=== PATIENT | male | born 1950 | race Caucasian/White ===

== ENCOUNTER → 2017-02-15 | Outpatient (CLI) | payer BC ==
[~2017-02-15] MED LIST: ASCO500T16 PO; ASPCH81X PO; CHOL100010 PO; LISI-461 PO; LPT40 PO; MULT-897 PO; OMEG-112 PO
--- NOTE | 2017-02-16 06:14 | PAP/PSG TECHNICIAN REPORT ---
[facility] Automation Clerk Polysomnogram Report Study name: None Report date: 02/16/2017 Study date: 02/15/2017 Referring Physician: Shaunna Kuhn M.D. Name: SIMON ANDREW Interpreting Physician: Radha Kuhn M.D. Date of : 1950 Automation Clerk: Tracee Mcfarland RPSMARY. Sex: Male Age: 66 StudyType: PSG W PAP Weight: 199 lbs Height: 66 years, Height 5' 10" BMI: 28.55 Medications: Toprol XL 50 mg, Atorvastatin 40 mg, One a Day multi vitamins, Vitamin C, Vitamin D, Low Dose Aspirin Patient History 66 yr. old male here for a titration sleep study in room 7. Patients has been on APAP and he is averaging 11 CA/hr. Patient uses nasal pillows and tapes his mouth shut. He was given a chin strap but still prefers the nap. Test will be started with just nasal pillows and chin strap will be added if patients mouth opens. Parameters Monitored NPSG: E1-M2, E2-M1, Fp1-M2, Fp2-M1, F3-M2, F4-M2, F4-M1, C3-M2, C4-M2, C4-M1, O1-M2, O2-M2, O2-M1, T3-M2, T4-M1, P3-M2, P4-M1, CHIN1, CHIN2, HR, EKG, Legs, PFLOW, SNOR, FLOW, CFLOW, Tidal Volume, THOR, ABDO, SpO2, PLTH, CPRESS, ETCO2 Wave, ETCO2, pH Sleep Architecture Sleep Stages Time at Lights Off 10:15:07 PM STAGES Time (min.) TST (%) Time at Lights On 5:58:37 AM Wake 122.0 -- Total Recording Time (TRT) 464.50 min. N1 39.5 12 Total Sleep Period (TSP) 451.5 min. N2 219.5 64 Total Sleep Time (TST) 341.5min. N3 26.0 8 Awake Time 123.0 min. REM 56.5 17 Wake after Sleep Onset 110.0 min. Sleep Efficiency (SE) 74 % Sleep Onset Latency ([place]) 12.0 min. Number of Stage 1 Shifts None Awakenings 14 Stage Changes 114 Number of REM periods 9 REM 56.5 17 REM Latency 102.0 min. NREM 285.0 83 Body Position Analysis Supine Right Left Side Prone Vertical Total Sleep Time (min.) 31.1 219.0 97.0 316.02 0.0 0.0 Total Sleep Time (%) 7% 64% 28% 93 0% N/A% Total Sleep Time REM (min.) 22.7 12.8 21.0 None 0.0 0.0 Total Sleep Time NREM (min.) 2.7 206.3 76.0 None 0.0 0.0 Intermittent Wake (min.) 5.6 37.8 78.6 None 0.0 0.0 Total Sleep Period (%) 7% None None None None None Arousals Myoclonus (PLM) * Events Count Index Events Count Index Spontaneous 22 4 Events Awake (PLMW) 65 32.0 Respiratory 10 2.1 Events Asleep w/ Arousal (PLMA) 58 10.2 PLM 58 10 Events Asleep w/o Arousal (PLMS) 81 14.2 Snoring 6 1 Total Asleep 139 24.4 Total 96 17 Total 204 26 Respiratory Analysis * CA OA MA CH H RERA Total Count 39 1 0 0 93 2 133 Index 6.9 0.2 0.0 0 16.3 0 23.7 Mean Duration 17.0 19.4 0.0 0.00 34.0 22.5 28.8 Longest Duration 29.4 19.4 0.0 0.00 0.0 27.1 58.7 Respiratory Event Summary Total Supine ~Supine Right Left Prone REM NREM Apneas Count 40 0 40 25 15 N/A 0 40 Index 7.0 0 8 6.8 9.3 N/A 0 8 Hypopneas (4% Desat) Count 93 13 80 62 18 N/A 21 72 Index 16.3 30.6 15 17.0 11.1 N/A 22.3 15.2 Apneas & All Hypopneas Count 133 13 120 87 33 N/A 21 112 Index 23.4 31 23 24 20 N/A 22.3 23.6 Respiratory Events (Farm Appraiser+All Hyp+RERA) Count 133 13 122 89 33 N/A 21 112 Index 23.7 31 23 24.4 20.4 N/A 22.3 24.0 Respiratory Related Arousal Count 10 13 12 8 4 N/A 1 11 Index 2.1 0 2 2 2 N/A 1 2 Snoring Analysis Supine Right Left Prone REM NREM Total Snore duration 2.6 min Snores count 0 35 11 N/A 4 42 46 Snore mean duration 3.4 Sec Snores index 0 10 7 N/A 4.2 8.8 8.1 TST with snoring (%) 0.8% Desaturation Event Summary: Minimum %SpO2 Event Count Mean/Min/Max Duration(sec.) Desaturation Index % Time In Bed > 90 127 32.1 / 10.5 / 57.0 19.9 84.1 86 - 90 32 28.3 / 16.0 / 43.3 28.7 14.7 81 - 85 0 N/A 0.0 1.2 76 - 80 0 N/A 0.0 0.0 71 - 75 0 N/A 0.0 0.0 66 - 70 0 N/A 0.0 0.0 61 - 65 0 N/A 0.0 0.0 56 - 60 0 N/A 0.0 0.0 51 - 55 0 N/A 0.0 0.0 < 50 0 N/A 0.0 0.0 Total REM NREM Awake <50% 0.0 min. 0.0 min. 0.0 min. 0.0 min. 51 - 60% 0.0 min. 0.0 min. 0.0 min. 0.0 min. 61 - 70% 0.0 min. 0.0 min. 0.0 min. 0.0 min. 71 - 80% 0.0 min. 0.0 min. 0.0 min. 0.0 min. 81 - 90% 72.5 min. 26.5 min. 43.4 min. 2.6 min. 91 - 100% 382.7 min. 30.0 min. 241.6 min. 111.1 min. Average 93 91 93 94 Minimum SpO2 81 84 83 81 Desaturation Event Index 17.9 26.5 22.3 3.4 # Desat. Events below 89% 50 20 29 1 Time(%) with Saturation below 89% 6.3 2.2 3.7 0.4 Time(min.) with Saturation below 89% 28.6 10.1 16.8 1.6 Time (mins) REM (mins) NREM (mins) % of TST SpO2 Below 90% 86 25 N61 12.6 SpO2 Below 88% 25 0 0 5 Heart Rate Analysis Min (bpm) Max (bpm) Average (bpm) Awake 38 214 60 NREM 48 76 53 REM 49 67 56 Overall 48 76 53 Supplemental O2 Values Minimum O2 level: None Value Start Time End Time Automation Clerk Comments Mr. Andrew slept in the right, left, and positions. No cardiac arrhythmia. PLMs noted. No bruxism noted. CPAP was initiated at +4 CMH2O room air and up-titrated to a level of 7 CMH2O Cflex 2, at this pressure Mr. Andrew was having sleep onset centrals and post arousals centrals, he was switched to Bi-PAP. PAP initiated at an IPAP of +8 CMH2O and an EPAP of +4 CMH2O up-titrated to an optimal level of: IPAP +15 CMH2O, EPAP +5 CMH20 BiFlex with a rate of 10 BPM, once the rate was added constant hypopneas supine were present. Mr. Andrew kept his mouth closed and a chin strap was not needed for his P10 nasal pillows. A full-face mask was fitted (medium [place] and [employer] simplus) but was not during titration. Mr. Andrew awoke to use the restroom two times during the night. stated, that was a normal night, just took a little longer to fall asleep. The final report will be interpreted and signed by a sleep physician. The completed physician report will then be placed in the patient medical record. Therapy Event: Therapy (cm H20) 4 5 6 7 8/4 9/5 Total Time at Pressure (min.) 27.7 55.2 83.9 56.5 29.8 109.8 TST at Pressure (min.) 15.7 22.2 58.9 53.5 29.8 61.3 # Periods 1 1 1 1 1 1 Sleep Onset (min.) 12.0 0.0 0.0 0.0 0.0 0.0 REM Onset (min.) N/A N/A 31.1 23.3 N/A N/A Sleep Efficiency % 56 40 70 94 100 55 Wakefulness (%) 43.3 59.8 29.8 5.3 0.0 44.2 Wakefulness (min.) 12.0 33.0 25.0 3.0 0.0 48.5 NREM 1 (%) 25.3 8.2 7.2 8.8 3.4 9.6 NREM 1 (min.) 7.0 4.5 6.0 5.0 1.0 10.5 NREM 2 (%) 31.4 32.1 58.9 34.5 96.6 46.3 NREM 2 (min.) 8.7 17.7 49.4 19.5 28.8 50.8 NREM 3 (%) 0.0 0.0 3.6 14.2 0.0 0.0 NREM 3 (min.) 0.0 0.0 3.0 8.0 0.0 0.0 REM (%) 0.0 0.0 0.6 37.2 0.0 0.0 REM (min.) 0.0 0.0 0.5 21.0 0.0 0.0 # Arousals 1 6 26 19 7 26 Arousal Index 3.8 16.2 26.5 21.3 14.1 25.4 # Snore 2 4 4 7 3 16 Snore Index 7.6 10.8 4.1 7.8 6.0 15.7 AHI 26.8 24.3 27.5 10.1 10.1 24.5 AHI Supine N/A N/A N/A N/A N/A N/A AHI Non-Supine 26.8 24.3 27.5 10.1 10.1 24.5 NREM AHI 26.8 24.3 27.8 14.8 10.1 24.5 REM AHI N/A N/A 0.0 2.9 N/A N/A RDI 26.8 24.3 27.5 11.2 12.1 24.5 # Obstructive 0 0 0 0 0 0 # Central Ap 1 5 15 5 2 11 # Mixed 0 0 0 0 0 0 # Hypopneas 6 4 12 4 3 14 RERAS 0 0 0 1 1 0 Total Respiratory Events 7 9 27 10 6 25 Time Below SpO2 89.00% (min.) 0.3 0.0 0.2 0.0 0.0 0.0 Mean NREM SpO2 (%) 92 94 95 92 93 93 Mean REM SpO2 (%) N/A N/A 94 91 N/A N/A Mean Sleep SpO2 (%) 92 94 95 92 93 93 Min NREM SpO2 (%) 88 89 88 90 90 89 Min REM SpO2 (%) N/A N/A 93 89 N/A N/A Position Supine (min.) 0.0 0.0 0.0 0.0 0.0 0.0 Position Non-supine (min.) 15.7 22.2 58.9 53.5 29.8 61.3 LM Index Sleep 3.8 13.5 20.4 29.1 46.3 36.2 LM Index NREM 3.8 13.5 20.6 33.2 46.3 36.2 LM Index REM N/A N/A 0.0 22.9 N/A N/A Mean Heart Rate (bpm) 56 54 52 53 51 53 Min Heart Rate (bpm) 54 50 48 48 48 48 Therapy (cm H20) 10/5 11/5 12/5 13/5 14/5 15/5 Total Time at Pressure (min.) 21.7 12.8 9.2 20.7 18.1 18.2 TST at Pressure (min.) 21.7 12.8 9.2 20.7 18.1 17.7 # Periods 1 1 1 1 1 1 Sleep Onset (min.) 0.0 0.0 0.0 0.0 0.0 0.0 REM Onset (min.) N/A 0.9 0.0 0.0 0.0 N/A Sleep Efficiency % 100 100 100 100 100 97 Wakefulness (%) 0.0 0.0 0.0 0.0 0.0 2.7 Wakefulness (min.) 0.0 0.0 0.0 0.0 0.0 0.5 NREM 1 (%) 0.0 7.8 0.0 12.1 0.0 11.0 NREM 1 (min.) 0.0 1.0 0.0 2.5 0.0 2.0 NREM 2 (%) 35.1 7.8 0.0 19.4 90.2 86.3 NREM 2 (min.) 7.6 1.0 0.0 4.0 16.3 15.7 NREM 3 (%) 64.9 7.3 0.0 0.0 0.0 0.0 NREM 3 (min.) 14.1 0.9 0.0 0.0 0.0 0.0 REM (%) 0.0 77.0 100.0 68.5 9.8 0.0 REM (min.) 0.0 9.8 9.2 14.2 1.8 0.0 # Arousals 0 2 1 3 2 3 Arousal Index 0.0 9.4 6.5 8.7 6.6 10.2 # Snore 0 2 0 1 6 1 Snore Index 0.0 9.4 0.0 2.9 19.9 3.4 AHI 11.1 42.3 39.0 17.4 53.1 33.9 AHI Supine N/A 55.4 39.0 0.0 N/A N/A AHI Non-Supine 11.1 23.1 N/A 30.0 53.1 33.9 NREM AHI 11.1 40.9 N/A 0.0 55.3 33.9 REM AHI N/A 42.7 39.0 25.4 33.8 N/A RDI 11.1 42.3 39.0 17.4 53.1 33.9 # Obstructive 0 0 0 0 0 1 # Central Ap 0 0 0 0 0 0 # Mixed 0 0 0 0 0 0 # Hypopneas 4 9 6 6 16 9 RERAS 0 0 0 0 0 0 Total Respiratory Events 4 9 6 6 16 10 Time Below SpO2 89.00% (min.) 0.0 1.5 2.5 5.9 9.3 7.4 Mean NREM SpO2 (%) 93 93 N/A 91 88 89 Mean REM SpO2 (%) N/A 92 90 89 89 N/A Mean Sleep SpO2 (%) 93 92 90 89 88 89 Min NREM SpO2 (%) 90 87 N/A 88 84 83 Min REM SpO2 (%) N/A 86 86 84 85 N/A Position Supine (min.) 0.0 7.6 9.2 8.7 0.0 0.0 Position Non-supine (min.) 21.7 5.2 0.0 12.0 18.1 17.7 LM Index Sleep 2.8 23.5 39.0 23.2 10.0 13.6 LM Index NREM 2.8 0.0 N/A 18.5 11.1 13.6 LM Index REM N/A 30.5 39.0 25.4 0.0 N/A Mean Heart Rate (bpm) 53 57 58 56 53 53 Min Heart Rate (bpm) 51 52 52 51 50 49
--- NOTE | 2017-02-22 09:22 | POLYSOMNOGRAPH REPORT ---
REFERRING PERSON: Dr. Mike Kuhn. INKER MACHINE: Tracee Mcfarland. Mr. Andrew is a 66-year-old male sent for a CPAP titration study. He has been on auto titrating CPAP at home but he averages an AHI despite therapy of over 10. Most of this residual AHI appears to be central. He returns to the lab to see if he needs either BIPAP, BiPAP ST or ASV and potentially has complex sleep apnea. Following the technical and digital specifications of the [place] [employer] (AASM) a standard diagnostic polysomnogram was performed monitoring EEG, EOG, EMG (chin and leg deviations), oxygen saturation, body position, digital video, respiratory effort and airflow. The sleep Stage and event scoring was based on the AASM Manual for the Scoring of Sleep and Associated Events 2007 edition. Apneas are defined as a drop in the peak thermal sensor excursion by >90% of baseline for at least 10 seconds. Hypopneas were scored using the 4% oxygen desaturation rule (4A-[employer]) and a decrease in the nasal pressure excursions by >30% of baseline for at least 10 seconds. Respiratory effort-related arousal (RERA's) is defined as a sequence of breaths lasting at least 10 seconds characterized by increasing respiratory effort or flattening of the nasal pressure waveform leading to an arousal from sleep when the sequence of breaths does not meet criteria for an apnea or hypopnea. Apnea Hypopnea index (AHI) is defined as the number of apneas and hypopneas occurring in an hour of sleep. Respiratory disturbance index (RDI) is defined as the number of apneas, hypopneas, and RERA's occurring in an hour of sleep. Mr. Andrew' total sleep period time was 451.5 minutes. Total sleep time was 341.5 minutes. Sleep efficiency was 74%. Latency to sleep onset was 12 minutes with wake after sleep onset of 110 minutes. Total non-REM sleep time was 285 minutes. There is 12% N1 sleep, 64% N2 sleep, 8% in N3 sleep. REM latency was 102 minutes. Total REM sleep time was 56.5 minutes or 17% of total sleep time. There were 96 cortical arousals from sleep. 2 of these arousals were spontaneous, 10 were due to respiratory events, 58 were due to periodic limb movements of sleep and 6 were due to snoring. There was 139 periodic limb movements noted on this test. Limb movement index was 24.4. Limb movement with arousal index was 10.2. On this titration, there were 39 central apneas, and 1 obstructive apnea and no mixed apnea. There were 93 hypopneas and 2 RERA. Apnea-hypopnea index for the entire night was 23.4. 46 snoring events were recorded. Total sleep time with snoring was 0.8%. Mean saturation was 93% with desaturations to 81%. Saturations were less than 89% for 28.6 minutes of recorded time. There was no cardiac ectopy noted on this study. Heart rates ranged from a low of 48 beats per minute to a high of 76 beats per minute during sleep. Mr. Andrew used foldable masks during this study. He ended up using a P10 nasal pillow mask and was able to keep his shut with this mask without a chin strap. This study was started on a CPAP pressure of 4 and he was titrated to a CPAP pressure of 7. Post-arousal and sleep onset central apneas were noted. He was then switched to bilevel therapy and titrated on BiPAP of 8/4-9/5. He continued to have central apneas and then was switched to BiPAP ST. BiPAP ST titration began on inspiratory pressure of 9, expiratory pressure of 5 and a backup rate of 10. Pressures were increased to a final inspiratory pressure of 15 and an expiratory pressure of 5 with a backup rate of 10. He was observed on a pressure of 15/5 for 17.7 minutes, none of which was during REM sleep. There was 1 obstructive and 9 hypopneas on this pressure. Saturations were less than 89 for 7.4 minutes and his AHI on this pressure were 33.9. The backup rate did appear to eliminate his central events. However, this titration did not eliminate his hypopneas. IMPRESSION AND PLAN: Mr. 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 Central apneas did resolve with the addition of a backup rate. Obstructive apneas appear to resolves with an inspiratory pressure of 15, but hypopneas continued on a pressure of 15/5. 1. I would recommend that this patient be started on BiPAP ST at an inspiratory pressure of 15 and accepted expiratory pressure of 8 with a backup rate of 10. A download from his machine can be reviewed in 1 month both to check compliance as well as apnea-hypopnea index and further pressure adjustments can occur at that time. Expiratory pressure may need to be increased in order to eliminate further hypopneic events. BiPAP ST does appear to eliminate his central disease.
== END | disposition home or self-care (01) ==
LOC: C.NEUR 21:00
PROVIDERS: ATTEND Family Medicine
DX: G47.33 Obstructive sleep apnea (adult) (pediatric) (principal); G47.31 Primary central sleep apnea; Z99.89 Dependence on other enabling machines and devices